=== PATIENT | male | born 1940 | race Caucasian/White ===

== ENCOUNTER 2024-05-07 17:51 | Emergency (ER) | payer MEDICARE, SELFPAY ==
[2024-05-07] VITALS (7 sets, daily range): BP systolic 138–145; BP diastolic 58–71; PULSE 66–74; RESP 10–23; TEMP 36.4–36.8; O2SAT 98–100
--- NOTE | ~2024-05-07 | CT_ITS ---
Procedure: CT foot RT wo con Ordering provider: Krysten Warner PA-C History: . edema, erythema, wound . Comparison: None. Technique: Thin slice axial CT of the No IV contrast was given. Sagittal and coronal reformatted imag es were also obtained and reviewed. Radiation reduction technique utilized. DLP is 492.749mGy-cm. Findings: BONES: No evidence of fracture or osteomyelitis seen. JOINT SPACES: Osteoarthritic changes of the first metatarsophalangeal joint. 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 Edema in the subcutaneous tissues is noted with no definite ulceration seen or gas. IMPRESSION: No evidence of fracture or dislocation. Edema in the subcutaneous tissues with no definite evidence of infection. Clinical correlation advise d. Reviewed, dictated and finalized at location A. IMPRESSION: No evidence of fracture or dislocation. Edema in the subcutaneous tissues with no definite evidence of infection. Clini felipa correlation advised.
--- NOTE | ~2024-05-07 | CT_ITS ---
Procedure: CT LE RT w con Ordering provider: Krysten Warner PA-C History: . edema, erythema, diabetic wound . Comparison: None. Technique: Thin slice axial CT of the No IV contrast was given. Sagittal and coronal reformatted imag es were also obtained and reviewed. Radiation reduction technique utilized.The dose-length product was 904.49 mGy-cm. Findings: BONES: No fractures seen. No evidence of osteomyelitis. JOINT SPACES: Normal. SOFT TISSUES: Edema in the subcutaneous tissues is noted. No definite air seen in the subcutaneous ti ssues. IMPRESSION: Edematous subcutaneous tissues with no ureteric or ulceration seen. Clinical correlation advised. No fracture or osteomyelitis demonstrated. Reviewed, dictated and finalized at location A. IMPRESSION: Edematous subcutaneous tissues with no ureteric or ulceration seen. Clinical co rrelation advised. No fracture or osteomyelitis demonstrated.
[2024-05-07 18:40] LABS: Basophils Percent Auto 0.2 % (0.2-1.2); Eosinophils Absolute Auto 0.2 K/mm3 (0-0.3); Eosinophils Percent Auto 3.9 % (0-4.4); Hematocrit 31.2 % (42.0-52.0); Hemoglobin 9.9 g/dL (14.0-18.0); Immature Granulocyte Absolute 0.02 K/mm3 (0.00-0.031); Immature Granulocyte Percent A 0.5 % (0-0.5); Immature Platelet Fraction Pct 2.9 % (0.9-11.2); Lymphocytes Absolute Auto 0.66 K/mm3 (0.9-3.2); Mean Corpuscular HGB Conc 31.7 g/dl (32-36); Mean Corpuscular Hemoglobin 29.2 pg (26-34); Mean Platelet Volume 9.9 fl (7.4-10.4); Monocytes Absolute Auto 0.3 K/mm3 (0.1-0.6); Neutrophils Absolute Auto 3.2 K/mm3 (1.3-6.7); Neutrophils Percent Auto 73.4 % (45.5-73.1); Platelet Count Result 87 k/mm3 (150-375); Red Blood Count 3.39 M/mm3 (4.6-6.20); Red Cell Distribution Width 15.2 % (11.5-14.5); White Blood Count 4.4 K/mm3 (4.5-10.0)
[2024-05-07 18:56] LABS: Alanine Aminotransferase 16 U/L (6-50); Albumin Level 3.1 g/dL (3.5-5.1); Alkaline Phosphatase 126 U/L (38-126); Anion Gap 6 mmol/L (4-12); Aspartate Amino Transferase 25 U/L (17-59); Bilirubin,Total 0.5 mg/dL (0.2-1.3); Blood Urea Nitrogen 21 mg/dL (9-20); Calcium 8.5 mg/dL (8.4-10.2); Carbon Dioxide 28 mmol/L (22-30); Chloride 102 mmol/L (98-107); Estimated CRCL calculation 45 ml/min; Estimated Glomerular Filt Rate > 60; Glucose 92 mg/dL (65-110); Potassium 4.2 mmol/L (3.4-5.0); Sodium 136 mmol/L (137-145)
[2024-05-07 18:59] LABS: INR 1.1
[2024-05-07 19:00] LABS: Partial Thromboplastin Time 34.3 Seconds (22.3-36.8)
[2024-05-07 19:00] LABS: Lactic Acid Reflex 1.3 mmol/L (0.7-2.0)
--- NOTE | 2024-05-07 19:02 | ED.EXTPRO ---
HPI - Extremity Problem General Chief complaint: Extremity Problem,Nontraumatic Stated complaint: R heel infection Time Seen by Provider: 05/07/24 18:28 Source: patient Mode of arrival: EMS Limitations: dementia History of Present Illness HPI Narrative: This is a 83 year old male that presents to the ER for a wound to the right lower extremity. Most of history obtained from patient's . Patient has had a wound to the right heel over the last several weeks. The area has become red, bruised and swollen over the last several days. Swelling extends into the lower leg. Denies fevers. Related Data Home Medications Medication Instructions Recorded Confirmed acetaminophen 500 mg tablet 1,000 mg PO Q6H PRN Pain 03/27/24 04/27/24 cholecalciferol (vitamin D3) 125 125 mcg PO DAILY 03/27/24 04/27/24 mcg (5,000 unit) tablet cyanocobalamin (vitamin B-12) 2,000 mcg PO DAILY 03/27/24 04/27/24 2,000 mcg tablet escitalopram oxalate 10 mg tablet 10 mg PO DAILY 03/27/24 04/27/24 lactulose 10 gram/15 mL oral 20 g PO 2XW 03/27/24 04/27/24 solution memantine 10 mg tablet 10 mg PO BID 03/27/24 04/27/24 metformin 500 mg tablet 500 mg PO QAM 03/27/24 04/27/24 olanzapine 2.5 mg tablet 2.5 mg PO HS 03/27/24 04/27/24 polyethylene glycol 3350 17 gram 17 g PO DAILY 03/27/24 04/27/24 oral powder packet tamsulosin 0.4 mg capsule 0.4 mg PO QPM 03/27/24 04/27/24 Allergies Allergy/AdvReac Type Severity Reaction Status Date / Time No Known Allergies Allergy Unknown Verified 05/07/24 18:10 Review of Systems Review of Systems: CONSTITUTIONAL: Denies fever SKIN: Reports wound All systems reviewed & are unremarkable except as noted in HPI and below PMFSH Past Medical History Medical History (Updated 05/08/24 @ 02:41 by Krysten Warner PA-C) BPH loc w urin obs/LUTS CKD (chronic kidney disease) Dementia Diabetes mellitus with hyperglycemia, without long-term current use of insulin Gait abnormality (Unknown) HCC (hepatocellular carcinoma) HTN (hypertension) Pancytopenia, acquired Family History Family History Mother Diabetes mellitus Father Cerebrovascular accident Other Hypertension Ovarian cancer Social History Social History Smoking packs per day: 1 Smoking cigarettes per day: 20.0 Years smoked: 60 Smoking pack-years: 60.00 Smoking status: Former smoker Alcohol intake: never Substance use: never Substance use type: former substance user Do You Feel Safe in your Home?: Yes Lack of Transportation: No Lack of Food: Never True Current Housing: I Have Housing Concerned About Future Housing: No Difficulty Paying Gas/Electric Bills: No Difficulty Paying for Meds: No Currently Unemployed: No Education: Bachelor's Degree Difficulty w/ Childcare or Family Care: No Spiritual care concerns: No Exam Narrative: GENERAL: Chronically ill-appearing, well-nourished, and in no acute distress. HEAD: Normocephalic, atraumatic. EYES: EOMI. CHEST: Clear to auscultation. No respiratory distress. No wheezes rales or rhonchi HEART: Regular rate and rhythm. No murmur heard. Normal peripheral pulses. EXTREMITIES: Normal range of motion. Right lower leg into the foot with edema and bruising. Ulcerating wound present to the right heel. DP and PT pulses obtained via doppler. Areas of black on the tips of the toes SKIN: Warm, dry, no rash. NEURO: No focal deficits. Alert and oriented x3. PSYCH: Normal mood and affect Course Consultations Consultation #1: [facility] [place] Dr. Jordan recommends transfer to the ER. Spoke with Dr. Wakefield, [facility] who accepts patient as transfer. They are full at the moment and will call to update every couple of hours as to when we can transport him Date: 05/08/24 Vital Signs Vital signs: Vital Signs Pulse Rate 68 05/07/24 18:07 Respiratory Rate
[2024-05-07 19:13] LABS: CRP 3.5 mg/dL (<1.0)
[2024-05-07 19:25] LABS: Erythrocyte Sedimentation Rate 60 mm/hr (0-20)
--- NOTE | 2024-05-07 21:59 | PC.NURSE ---
spoke with Eh in pharmacy- there was no 2g in 50 ml cefepime in the pyxis. some will be sent down
[2024-05-07] MEDS: CEFEPIME 2 GM/NS 50 ML 2 GM/50 ML BAG IVPB (22:43)
[2024-05-07] MEDS: metroNIDAZOLE 500 MG/ISO 100ML 500 MG/100 ML BAG 100 MG IVPB (23:09)
--- NOTE | 2024-05-07 23:21 | PC.NURSE ---
Patient accepted to [facility] for transfer. They will call back in a couple hours when there is room for the patient to transfer.
[2024-05-08] MEDS: VANCOMYCIN 1,750 MG/NS 500 ML 1,750 MG/500 ML BAG 250 MG IVPB (00:13)
[2024-05-08 01:32] VITALS: BP 144/67; PULSE 73; RESP 12; TEMP 36.6; O2SAT 100
[2024-05-08 03:31] VITALS: BP 139/76; PULSE 78; RESP 14; TEMP 36.7; O2SAT 99
[2024-05-08 05:19] VITALS: BP 135/64; PULSE 72; RESP 12; TEMP 36.6; O2SAT 98
[2024-05-08] MEDS: metroNIDAZOLE 500 MG/ISO 100ML 500 MG/100 ML BAG 100 MG IVPB (06:04)
== END 2024-05-08 06:08 | disposition short-term general hospital (02) ==
PROVIDERS: Emergency Medicine; Emergency Provider Physician Assistant; PCP Internal Medicine
DX: L08.89 Other specified local infections of the skin and subcutaneous tissue (principal); E11.621 Type 2 diabetes mellitus with foot ulcer; L97.419 Non-pressure chronic ulcer of right heel and midfoot with unspecified severity; I73.9 Peripheral vascular disease, unspecified; I12.9 Hypertensive chronic kidney disease with stage 1 through stage 4 chronic kidney disease, or unspecified chronic kidney disease; N18.9 Chronic kidney disease, unspecified; F03.90 Unspecified dementia, unspecified severity, without behavioral disturbance, psychotic disturbance, mood disturbance, and anxiety; N40.0 Benign prostatic hyperplasia without lower urinary tract symptoms
CPT/HCPCS: 36415; 73700; 73701; 80053; 83605; 85025; 85055; 85610; 85652; 85730; 86140; 87040; 87070; 87081; 87181; 87205; 96365; 96366; 96367; 96375; 99285; J0692; J1836; J3370; Q9967